=== PATIENT | female | born 1960 | race Caucasian/White ===

== ENCOUNTER → 2017-02-12 | Outpatient (CLI) | payer OTHER ==
[~2017-02-12] MED LIST: /TAMS4CA; BUPR15TA; CIPROFLOXACIN; CIPRPOW8; PERC5TAB8; VICO5TAB; WELL75TA
[2017-02-12 14:33] LABS: FREE T4 1.03 NG/DL (0.76-1.46)
== END ==
LOC: M SMT 08:40
PROVIDERS: ATTEND Family Medicine
DX: E03.8 Other specified hypothyroidism (principal)

== ENCOUNTER → 2017-07-05 | Outpatient (CLI) | payer OTHER ==
[2017-07-05 13:23] LABS: FREE T4 1.22 NG/DL (0.76-1.46)
== END ==
LOC: M SMT 09:07
PROVIDERS: ATTEND Family Medicine
DX: E03.8 Other specified hypothyroidism (principal)

== ENCOUNTER → 2018-03-15 | Outpatient (CLI) | payer OTHER ==
[2018-03-15 17:59] LABS: FREE T4 1.18 NG/DL (0.76-1.46); THYROID STIMULATING HORMONE 0.643 uIU/ML (0.358-3.740)
== END ==
LOC: M SMT 14:48
DX: E03.9 Hypothyroidism, unspecified (principal); F33.1 Major depressive disorder, recurrent, moderate; G47.00 Insomnia, unspecified
CPT/HCPCS: 84443

== ENCOUNTER → 2018-05-24 | Outpatient (REF) | payer OTHER ==
[2018-05-24 18:40] LABS: APPEARANCE, URINE TURBID (CLEAR); BACTERIA, URINE AUTO 3+ (NEGATIVE); BILIRUBIN, URINE AUTO NEGATIVE (NEGATIVE); BLOOD, URINE BLOOD 2+ (NEGATIVE); CALCIUM OXALATE CRYSTALS LARGE; COLOR, URINE YELLOW (YELLOW); GLUCOSE, URINE (UA) AUTO NEGATIVE (NEGATIVE); KETONE, URINE AUTO TRACE mg/dL (NEGATIVE); LEUKOCYTE ESTERASE, URINE AUTO 1+ (NEGATIVE); MUCUS, URINE MODERATE (NEGATIVE); NITRITE, URINE AUTO NEGATIVE (NEGATIVE); PROTEIN, URINE AUTO NEGATIVE (NEGATIVE); RBC, URINE AUTO 98 /HPF (0-3); SPECIFIC GRAVITY URINE AUTO 1.026 (1.002-1.035); SQUAMOUS EPITHELIAL CELL UR AU 7 /HPF (0-6); WBC, URINE AUTO TNTC /HPF (0-3)
== END ==
LOC: M LAB REF 17:09
DX: R30.0 Dysuria (principal)

== ENCOUNTER → 2018-10-23 | Outpatient (CLI) | payer OTHER ==
[2018-10-23 13:50] LABS: CHOLESTEROL RISK RATIO 3.257 (<5); FREE T4 1.32 NG/DL (0.76-1.46); THYROID STIMULATING HORMONE 1.54 uIU/ML (0.358-3.740)
== END ==
LOC: M SMT 09:55
PROVIDERS: ATTEND Family Medicine
DX: E03.8 Other specified hypothyroidism (principal); E78.00 Pure hypercholesterolemia, unspecified

== ENCOUNTER → 2018-12-19 | Outpatient (CLI) | payer OTHER ==
[~2018-12-19] MED LIST changes: -/TAMS4CA; +FLOM0.4C39
[2018-12-19 14:48] LABS: BASO % 0.4 % (0.0-1.0); EOS % 0.4 % (0.0-3.0); HEMATOCRIT 44.9 % (36.0-47.0); HEMOGLOBIN 14.3 g/dl (12.0-15.5); LYMPH # 1.7 10^3/uL (1.5-4.5); LYMPH % 32.9 % (24.0-44.0); MEAN CORPUSCULAR HEMOGLOBIN 30.2 pg (27.0-33.0); MEAN CORPUSCULAR HGB CONC 31.8 g/dl (32.0-36.5); MEAN CORPUSCULAR VOLUME 94.7 fl (80.0-96.0); MONO # 0.4 10^3/uL (0.0-0.8); MONO % 7.3 % (0.0-5.0); NEUTROPHILS # 3.1 10^3/uL (1.8-7.7); NEUTROPHILS % 58.6 % (36.0-66.0); PLATELET COUNT, AUTOMATED 197 10^3/uL (150-450); RED BLOOD COUNT 4.74 10^6/uL (4.00-5.40); WHITE BLOOD COUNT 5.2 10^3/uL (4.0-10.0)
[2018-12-19 15:09] LABS: ALBUMIN 3.7 GM/DL (3.2-5.2); ALT/SGPT 45 U/L (12-78); BILIRUBIN,TOTAL 0.2 MG/DL (0.2-1.0); BLOOD UREA NITROGEN 23 MG/DL (7-18); CALCIUM LEVEL 8.6 MG/DL (8.5-10.1); CARBON DIOXIDE LEVEL 29 MEQ/L (21-32); CHLORIDE LEVEL 108 MEQ/L (98-107); CREATININE FOR GFR 0.79 MG/DL (0.55-1.30); FERRITIN 30 NG/ML (8-252); FREE T4 1.36 NG/DL (0.76-1.46); GLOMERULAR FILTRATION RATE > 60.0 (>51); GLUCOSE, FASTING 88 MG/DL (70-100); IRON (FE) 74 UG/DL (50-170); MAGNESIUM LEVEL 2.4 MG/DL (1.8-2.4); PERCENT SATURATION 22.3 % (13.2-45.0); POTASSIUM SERUM 4.2 MEQ/L (3.5-5.1); RHEUMATOID FACTOR QUANT < 10.0 IU/ML (<15.0); SODIUM LEVEL 142 MEQ/L (136-145); THYROID STIMULATING HORMONE 0.587 uIU/ML (0.358-3.740); TOTAL 25(OH) VITAMIN D 30.9 NG/ML (30.0-100.0); TOTAL IRON BINDING CAPACITY 332 UG/DL (250-450); TOTAL PROTEIN 7.7 GM/DL (6.4-8.2); URIC ACID 3.7 MG/DL (2.6-6.0)
[2018-12-19 15:26] LABS: ERYTHROCYTE SEDIMENTATION RATE 25 mm/hr (0-30)
[2018-12-20 09:19] LABS: THYROID PEROXIDASE ANTIBODY 67.6 U/ML (<60.0)
[2018-12-23 00:06] LABS: ANTINUCLEAR ANTIBODIES DIRECT Negative (Negative); CYCLIC CITRULLINATED PEPTIDE 9 units (0-19); Lyme Disease IgG/IgM Antibodie <0.91 ISR (0.00-0.90); Lyme Disease IgM Ab Quantitati <0.80 index (0.00-0.79); TISSUE TRANSGLUTAMINASE IgA <2 U/mL (0-3); TISSUE TRANSGLUTAMINASE IgG <2 U/mL (0-5)
== END ==
LOC: M SMT 10:17
PROVIDERS: ATTEND Family Medicine
DX: R53.83 Other fatigue (principal); M25.50 Pain in unspecified joint; R00.2 Palpitations

== ENCOUNTER 2019-04-19 09:31 | Inpatient (IN) | payer OTHER ==
[~2019-04-19] VITALS: Ht 160 cm; Wt 61.4 kg
[2019-04-19] MEDS ORDERED: IBUP200C29 PO (09:38)
[2019-04-19] MEDS ORDERED: VENL75CA47 PO (09:38)
[2019-04-19] MEDS ORDERED: LEVO100T5 PO (09:38)
[2019-04-19] MEDS ORDERED: PROG1CAP8 (09:38)
[2019-04-19] MEDS ORDERED: VYVA40CA3 PO (09:38)
[2019-04-19] MEDS ORDERED: ESTR10TA PV (09:38)
[2019-04-19] MEDS ORDERED: VICO5TAB17 PO (09:54)
[2019-04-19] MEDS ORDERED: NS 1,000 ML IV ONE ×2 (10:30→13:30)
[2019-04-19] MEDS ORDERED: ONDANSETRON 4MG/2ML VIAL (J2405) IV ONE (10:30)
[2019-04-19 10:53] LABS: BASO % 0.2 % (0.0-1.0); EOS % 0.1 % (0.0-3.0); HEMATOCRIT 37.2 % (36.0-47.0); HEMOGLOBIN 12.2 g/dl (12.0-15.5); LYMPH # 0.3 10^3/uL (1.5-4.5); LYMPH % 2.3 % (24.0-44.0); MEAN CORPUSCULAR HEMOGLOBIN 30.8 pg (27.0-33.0); MEAN CORPUSCULAR HGB CONC 32.8 g/dl (32.0-36.5); MEAN CORPUSCULAR VOLUME 93.9 fl (80.0-96.0); MONO # 0.6 10^3/uL (0.0-0.8); MONO % 4.5 % (0.0-5.0); NEUTROPHILS # 11.5 10^3/uL (1.8-7.7); NEUTROPHILS % 92.3 % (36.0-66.0); PLATELET COUNT, AUTOMATED 142 10^3/uL (150-450); RED BLOOD COUNT 3.96 10^6/uL (4.00-5.40); WHITE BLOOD COUNT 12.4 10^3/uL (4.0-10.0)
[2019-04-19 11:15] LABS: ALBUMIN 2.7 GM/DL (3.2-5.2); BILIRUBIN,DIRECT 0.1 MG/DL (0.0-0.2); BILIRUBIN,TOTAL 0.3 MG/DL (0.2-1.0); CALCIUM LEVEL 8.3 MG/DL (8.5-10.1); CREATININE FOR GFR 2.07 MG/DL (0.55-1.30); GLOMERULAR FILTRATION RATE 26.3 (>51); POTASSIUM SERUM 3.8 MEQ/L (3.5-5.1); TOTAL PROTEIN 6.3 GM/DL (6.4-8.2)
[2019-04-19 11:21] LABS: INFLUENZA A AMPLIFICATION NEGATIVE (NEGATIVE); INFLUENZA B AMPLIFICATION NEGATIVE (NEGATIVE)
--- NOTE | 2019-04-19 11:27 | REP ---
Clinical: Pelvic pain . Technique: Transabdominal pelvic ultrasound followed by transvaginal examination for better evaluation of the endometrium and adnexa with color Doppler evaluation of the ovaries. Findings: Bladder is unremarkable and measures 8.1 x 2.9 x 5.3 cm . Normal retroverted uterus measures 6.8 x 3.2 x 3.8 cm . The endometrial complex measures 2.0 mm thickness. No discrete uterine or endometrial abnormalities are appreciated. Bilateral ovaries are normal in appearance and vascularity without evidence for torsion. Right ovary measures 1.9 x 1.1 x 1.2 cm ; R I = 0.53 . Left ovary measures 1.6 x 1.4 x 1.7 cm ; R I = 0.54 . No pelvic free fluid or adnexal mass lesion . Impression: 1. Normal pelvic ultrasound. Electronically Signed by Darrel Osborn MD 04/19/2019 11:18 A
[2019-04-19] MEDS ORDERED: PROG1CAP8 PO (13:14)
[2019-04-19] MEDS ORDERED: IBUP200C25 PO (13:14)
[2019-04-19] MEDS ORDERED: LevoFLOXacin IV 750 MG in APPROPRIATE DILUENT 1 EA IV ONE (13:30)
[2019-04-19] MEDS ORDERED: MORPHINE 2 MG/ML 1ML SYRINGE (J2270) IV ONE (13:45)
[2019-04-19] MEDS ORDERED: LR 1,000 ML IV ONE (14:15)
--- NOTE | 2019-04-19 14:56 | HPEPDOC ---
General Date of Admission Date of Service: Apr 19, 2019 Primary Care Physician: RUDDY LANCE DO Attending Physician: KALIA LOPEZ DO Chief Complaint The patient is a 59-year-old female admitted with a reason for visit of Left Stone With Possible Rt. History of Present Illness Patient is 59 years old female with past medical history of nephrolithiasis presenting hospital with left flank pain. Patient stated that she started feeling the left flank pain 3 days ago, severe a total of 10, intermittent associated with nausea and urinary frequency. The patient did have history of nephrolithiasis. Also patient developed fever of 103 with rigors. In the emergency room patient was found to have leukocytes count of 12.6, elevated lactic acid of 3.7. Abdominal CAT scan showed left ureteral stone of 0.6 cm. Urologist team consulted patient and decided to place a stent in the left ureter. Treatment with IV fluid and levofloxacin IV initiated. Home Medications Scheduled Estradiol (Estradiol) 10 Mcg Tablet, 10 MCG PV 2XWK, (Reported) Levothyroxine Sodium (Levothyroxine Sodium) 100 Mcg Tablet, 100 MCG PO DAILY, (Reported) Lisdexamfetamine Dimesylate (Vyvanse) 40 Mg Capsule, 40 MG PO DAILY, (Reported) Progesterone, Micronized (Progesterone) 100 Mg Capsule, 100 MG PO QPM, (Reported) Venlafaxine HCl (Venlafaxine HCl ER) 75 Mg Cap.er.24h, 225 MG PO DAILY, (Reported) Scheduled PRN Hydrocodone/Acetaminophen (Vicodin 5-300 mg Tablet) 1 Each Tablet, 1 TAB PO Q4H PRN for PAIN, (Reported) Ibuprofen (Ibuprofen) 200 Mg Capsule, 800 MG PO Q6H PRN for PAIN, (Reported) Allergies Coded Allergies: Cephalosporins (Verified Allergy, Unknown, hives, 04/19/19) Sulfa (Sulfonamide Antibiotics) (Verified Allergy, Unknown, hives, 04/19/19) Past Medical History Medical History Nephrolithiasis Surgical History Left knee surgery for a cruciate ligament tear, as well as endometrial ablation for dysfunctional uterine bleeding Family History Both parents have diabetes and hypertension Social History * Smoker: Denies Alcohol: Denies Drugs: denies Psychosocial History: No pertinent psych hx A-FIB/CHADSVASC A-FIB History Current/History of A-Fib/PAF?: No Current PO Anticoag Therapy: No Review of Systems Constitutional: Reports: Chills, Fever, Fatigue Eyes: Denies: Pain, Vision change ENT: Denies: Head Aches, Ear Pain Skin: Denies: Rash, Lesions Pulmonary: Denies: Dyspnea, Cough Cardiovascular: Denies: Chest Pain, Palpitations Gastrointestinal: Reports: Nausea Genitourinary: Reports: Dysuria, Frequency, Other Symptoms (left flank pain) Hematologic: Denies: Bruising, Bleeding Excessively Endocrine: Denies: Polydipsia, Polyphagia Musculoskeletal: Denies: Neck Pain, Back Pain Neurological: Denies: Weakness, Numbness Psych: Reports: Mood Normal Physical Examination General Exam: Positive: Alert, Cooperative, Moderate Distress Eye Exam: Positive: PERRLA, Conjunctiva & lids normal ENT Exam: Negative: Atraumatic, Mucous membr. moist/pink Neck Exam: Positive: Supple; Negative: JVD Heart Exam: Positive: Rate Normal, Tachycardic Abdomen Exam: Positive: BS Hypoactive, Tenderness (positive for left costophrenic tenderness) Extremity Exam: Negative: Clubbing, Cyanosis Skin Exam: Negative: Nl turgor and temperature Neuro Exam: Positive: Cranial Nerves 3-12 NL Psych Exam: Positive: Mental status NL Vital Signs Vital Signs Date Time Temp Pulse Resp B/P (MAP) Pulse Ox O2 Delivery O2 Flow Rate FiO2 04/19/19 13:56 16 04/19/19 13:35 98.8 80 153/71 (98) 98 04/19/19 09:31 Room Air Laboratory Data Labs 24H Laboratory Tests 2 04/19/19 09:47: Urine Color YELLOW, Urine Appearance CLEAR, Urine pH 5.0, Urine Specific [place] 1.013, Urine Protein 2+H, Urine Glucose (UA) NEGATIVE, Urine Ketones TRACEH, Urine Blood 2+H, Urine Nitrite NEGATIVE, Urine Bilirubin NEGATIVE, Urine Urobilinogen 0.2, Urine Leukocyte Esterase 1+H, Urine WBC (Auto) 49H, Urine RBC (Auto) 13H, Urine Hyaline Casts (Auto) 0, Urine Bacteria (Auto) 1+H, Urine Squamous Epithelial Cells 2, Urine Mucus (Auto) SMALL, Urine Sperm (Auto) 04/19/19 10:17: Immature Granulocyte % (Auto) 0.6, White Blood Count 12.4H, Red Blood Count 3.96L, Hemoglobin 12.2, Hematocrit 37.2, Mean Corpuscular Volume 93.9, Mean Corpuscular Hemoglobin 30.8, Mean Corpuscular Hemoglobin Concent 32.8, Red Cell Distribution Width 13.3, Platelet Count 142L, Neutrophils (%) (Auto) 92.3H, Lymphocytes (%) (Auto) 2.3L, Monocytes (%) (Auto) 4.5, Eosinophils (%) (Auto) 0.1, Basophils (%) (Auto) 0.2, Neutrophils # (Auto) 11.5H, Lymphocytes # (Auto) 0.3L, Monocytes # (Auto) 0.6, Eosinophils # (Auto) 0.0, Basophils # (Auto) 0.0, Nucleated Red Blood Cells % (auto) 0.0 04/19/19 10:30: Anion Gap 10, Glomerular Filtration Rate 26.3L, Calcium Level 8.3L, Aspartate Amino Transf (AST/SGOT) 36, Alanine Aminotransferase (ALT/SGPT) 46, Alkaline Phosphatase 104, Total Bilirubin 0.3, Direct Bilirubin 0.1, Total Protein 6.3L, Albumin 2.7L, Albumin/Globulin Ratio 0.75L, Lipase 51L, Influenza Type A (RT- PCR) NEGATIVE, Influenza Type B (RT-PCR) NEGATIVE, Respiratory Syncytial Virus (RT-PCR NEGATIVE 04/19/19 13:03: Lactic Acid Level 3.7*H CBC/BMP Laboratory Tests 04/19/19 10:17 Red Blood Count 3.96 L, Mean Corpuscular Volume 93.9, Mean Corpuscular Hemoglobin 30.8, Mean Corpuscular Hemoglobin Concent 32.8, Red Cell Distribution Width 13.3, Neutrophils (%) (Auto) 92.3 H, Lymphocytes (%) (Auto) 2.3 L, Monocytes (%) (Auto) 4.5, Eosinophils (%) (Auto) 0.1, Basophils (%) (Auto) 0.2, Neutrophils # (Auto) 11.5 H, Lymphocytes # (Auto) 0.3 L, Monocytes # (Auto) 0.6, Eosinophils # (Auto) 0.0, Basophils # (Auto) 0.0 04/19/19 10:30 Microbiology Microbiology 04/19/19 Blood Culture, Received Pending 04/19/19 Blood Culture, Received Pending 04/19/19 Urine Culture, Received Pending Assessment/Plan Patient is 59 years old female with past medical history of nephrolithiasis presenting hospital with left flank pain. Patient stated that she started feeling the left flank pain 3 days ago, severe a total of 10, intermittent associated with nausea and urinary frequency. The patient did have history of nephrolithiasis. Also patient developed fever of 103 with rigors. In the emergency room patient was found to have leukocytes count of 12.6, elevated lactic acid of 3.7. Abdominal CAT scan showed left ureteral stone of 0.6. Urologist team consulted patient and decided to place a stent in the left ureter. Treatment with IV fluid and levofloxacin IV initiated. Problems (1) Sepsis Problem Text: Secondary to acute pyelonephritis Patient has leukocytosis of 12.4, lactic acidosis of 3.7 Continue levofloxacin IV IV fluid Blood culture, urine culture (2) Pyelonephritis Status: Acute Problem Text: see above (3) Renal calculus, left Status: Acute Problem Text: Left ureteral stent placement today Continue IV fluid Urologist on board Plan / VTE VTE Prophylaxis Ordered?: Yes Plan Diet: Continue Current Anticipated Discharge: Home KALIA LOPEZ DO Apr 19, 2019 14:56
[2019-04-19] MEDS ORDERED: LevoFLOXacin IV 500 MG in APPROPRIATE DILUENT 1 EA IV SCH (15:15)
--- NOTE | 2019-04-19 17:15 | CR ---
DATE OF CONSULTATION: 04/19/2019 REFERRING PROVIDERS: Lexie Otero PA-C, and physician, Dr. Bryce Chou REASON FOR CONSULTATION: Obstructing left ureteral stone with possible urinary tract infection (UTI). HISTORY: Ms. 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 There have been no irritative voiding symptoms. She previously had a left-sided stone in 2007, requiring endoscopic intervention and stenting and ureteroscopic stone extraction. No prior to subsequent stone issues. She has had a temperature as high as 101.[address] scan shows on my review hydroureteronephrosis on the left down to the distal ureter, where there appear to be two adjacent stones, one approximately 5-6 mm and the other 3-4 mm. In the kidney there is a 1-2 mm stone on the left. There is no extravasation. No right-sided stones. Emergency room (ER) labs are significant for a white count of just over 12, lactate 3.7, creatinine 2. Urinalysis shows polyuria and microhematuria with 1+ bacteruria. ALLERGIES: SULFA and CEPHALOSPORINS, both of which cause hives. 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 She was formerly a pediatric nurse. MEDICATIONS: Levothyroxine, venlafaxine, Vyvanse, estradiol, Vicodin, Motrin, progesterone. REVIEW OF SYSTEMS: She has no past history of seizures, stroke, or lateralizing weakness. She does suffer from migraine headaches periodically and has been fairly photophobic during this episode. She has no known cardiac rhythm disturbances, murmurs, or failure. No history of myocardial infarction. No respiratory diseases or shortness of breath. Gastrointestinal (GI): She has been having nausea and vomiting. No other chronic GI problems. No hematochezia. URINARY HISTORY: Refer to history of present illness (HPI). GENITOURINARY SYSTEM: She has had previous uterine ablation. No other genitourinary issues. SURGERIES: 1. The ureteroscopic stone extraction. 2. Excision of Rust's neuroma. 3. Anterior cruciate ligament (ACL) repair. 4. Uterine ablation. For the remainder of her past medical, surgical, social, family history, review of systems, please refer to dictated history and physical on chart. PHYSICAL EXAMINATION: At the time of exam, temperature is 98.8, pulse 80, respirations 16, pulse oximetry 98, blood pressure 153/71. In general, she is awake, alert, and oriented. She appears ill. Her neck is supple. Chest clear. Cardiac: Regular rate and rhythm. Abdominal exam is soft. Tenderness in the left flank and left upper abdomen as well as the left lower quadrant. Bimanual pelvic exam is not done at this time. Extremity exam shows symmetrical pulses. Neurologic exam is nonfocal. No adenopathy is appreciated. IMPRESSION: Left distal ureteral stone with colic and possible urinary tract infection (UTI). The findings of elevation of lactate and pyuria are concerning for intercurrent sepsis. PLAN: Agree with involvement of the hospitalist service for admission for possible management of sepsis. I have contacted the operating room for cystoscopy and stent placement. There is no second team available at present to bring in for stent placement with an intercurrent acute abdomen undergoing surgery. The risks of cystoscopy and stent placement include infection, which may worsen postoperatively, bleeding, and the need for additional procedures, including possible nephrostomy if stent cannot be passed. Patient and her are agreeable to this plan, and their questions are answered.
[2019-04-19] MEDS ORDERED: PROPOFOL 200 MG/20 ML VIAL As Ordered ONE (17:38)
[2019-04-19] MEDS ORDERED: dexameTHASONE 4 MG/ML 1ML VIAL (J1100) As Ordered ONE (17:38)
[2019-04-19] MEDS ORDERED: MIDAZOLAM INJ 2 MG/2 ML VIAL (J2250) As Ordered ONE (17:38)
[2019-04-19] MEDS ORDERED: LIDOCAINE 2% INJ 100 MG/5 ML SDV (FOR ANES.) As Ordered ONE (17:38)
[2019-04-19] MEDS ORDERED: fentaNYL 100 MCG/2 ML INJECTION (J3010) As Ordered ONE (17:38)
[2019-04-19] MEDS ORDERED: ONDANSETRON 4MG/2ML VIAL (J2405) As Ordered ONE (17:38)
[2019-04-19] MEDS ORDERED: METOCLOPRAMIDE INJ 10MG/2ML VIAL (J2765) IV PRN (18:15)
[2019-04-19] MEDS ORDERED: LR 1,000 ML IV SCH (18:15)
[2019-04-19] MEDS ORDERED: KETOROLAC 30 MG/ML VIAL (J1885) IV PRN (18:15)
[2019-04-19] MEDS ORDERED: fentaNYL 100 MCG/2 ML INJECTION (J3010) IV PRN (18:15)
[2019-04-19] MEDS ORDERED: ONDANSETRON 4MG/2ML VIAL (J2405) IV PRN (18:15)
--- NOTE | 2019-04-19 18:21 | REP ---
Clinical: Left-sided obstructive uropathy. Technique: Intraoperative fluoroscopic imaging using portable C-arm technique. Findings: Two images demonstrate satisfactory left ureteral stent placement. Total fluoroscopic time 2 seconds. Impression: Status post left ureteral stent placement. Electronically Signed by Darrel Osborn MD 04/19/2019 06:13 P
[2019-04-19 18:45] VITALS: BP 128/75
[2019-04-19] MEDS: NS 1,000 ML IV SCH (18:48)
[2019-04-19 19:15] VITALS: BP 127/75
[2019-04-19] MEDS: HEPARIN SOD (PORCINE) 5000 UNITS/ML VIAL SC SCH (20:03)
[2019-04-19 20:15] VITALS: BP 124/75
[2019-04-19 21:27] VITALS: BP 120/73
[2019-04-19 22:54] VITALS: BP 120/73
[2019-04-20] MEDS: NS 1,000 ML IV SCH ×3 (00:12→23:55)
[2019-04-20] MEDS: NORCO, ANEXSIA 5/325MG TABLET (HYDROcodone/ACETAMINOPHEN) PO PRN ×5 (00:12→21:40)
[2019-04-20 00:17] VITALS: BP 120/76
[2019-04-20 04:00] VITALS: BP 108/66
[2019-04-20] MEDS: LEVOTHYROXINE 100MCG TABLET (0.1MG) PO SCH (05:56)
[2019-04-20 07:22] LABS: HEMATOCRIT 38.3 % (36.0-47.0); HEMOGLOBIN 12.4 g/dl (12.0-15.5); MEAN CORPUSCULAR HEMOGLOBIN 30.8 pg (27.0-33.0); MEAN CORPUSCULAR HGB CONC 32.4 g/dl (32.0-36.5); PLATELET COUNT, AUTOMATED 146 10^3/uL (150-450); RED BLOOD COUNT 4.03 10^6/uL (4.00-5.40); WHITE BLOOD COUNT 12.3 10^3/uL (4.0-10.0)
[2019-04-20 07:43] LABS: ALBUMIN 2.2 GM/DL (3.2-5.2); BILIRUBIN,TOTAL 0.3 MG/DL (0.2-1.0); CALCIUM LEVEL 8.5 MG/DL (8.5-10.1); CREATININE FOR GFR 1.35 MG/DL (0.55-1.30); MAGNESIUM LEVEL 2.3 MG/DL (1.8-2.4); TOTAL PROTEIN 6.7 GM/DL (6.4-8.2)
[2019-04-20] MEDS: HEPARIN SOD (PORCINE) 5000 UNITS/ML VIAL SC SCH ×2 (09:01→21:23)
[2019-04-20] MEDS: VENLAFAXINE **XR** 75MG CAPSULE PO SCH (09:02)
[2019-04-20] MEDS: oxyBUTYnin *DITROPAN XL* 5 MG TABCR PO SCH (09:02)
--- NOTE | 2019-04-20 09:33 | IPNPDOC ---
Subjective Review oF Systems Chief Complaint The patient is a 59-year-old female admitted with a reason for visit of Left Stone With Possible Rt. General: Reports: Chills, Malaise Constitutional: Reports: Chills, Malaise Eyes: Denies: Pain, Vision change, Conjunctivae inflammation, Eyelid inflammation, Redness, Other ENT: Denies: Head Aches, Ear Pain, Dysphagia, Sinus Congestion, Post Nasal Drip, Sore Throat, Epistaxis, Other Symptoms Skin: Denies: Rash, Lesions, Jaundice, Bruising, Itching, Dry, Breakdown, Nail Changes, Other Pulmonary: Denies: Dyspnea, Cough, Pleuritic Chest Pain, Other Symptoms Cardiovascular: Denies Chest Pain, Denies Palpitations, Denies Orthopnea, Denies Paroxysmal Noc. Dyspnea, Denies Edema, Denies Lt Headedness, Denies Other Symptoms Gastrointestinal: Denies: Nausea, Vomiting, Abdominal Pain, Diarrhea, Constipation, Melena, Hematochezia, Other Symptoms Hematologic: Denies: Bruising, Bleeding Excessively, Petecchia, Purpura, Enlarged Lymph Nodes, Other Hematologic Musculoskeletal: Denies: Neck Pain, Back Pain, Shoulder Pain, Arm Pain, Hand Pain, Leg Pain, Foot Pain, Joint Pain, Muscle Pain, Spasms, Other Symptoms Neurological: Denies: Weakness, Numbness, Incoordination, Change in Speech, Confusion, Seizures, Other Symptoms Psych: Reports: Mood Normal Objective Physical Examination General Exam: Alert, Cooperative, No Acute Distress Eye Exam: PERRLA ENT EXAM: Atraumatic Neck Exam: Supple Chest Exam: Normal air movement Heart Exam: Positive: Rate Normal, Tachycardic Vital Signs/I&O Vital Signs Date Time Temp Pulse Resp B/P (MAP) Pulse Ox O2 Delivery O2 Flow Rate FiO2 04/20/19 07:59 16 04/20/19 04:00 98.5 74 108/66 (80) 96 04/19/19 15:53 Room Air I&O- Last 24 Hours up to 6 AM 04/20/19 06:00 Intake Total 2630 ml Output Total 1875 ml Balance 755 ml Laboratory Data Labs 24H Laboratory Tests 2 04/19/19 09:47: Urine Color YELLOW, Urine Appearance CLEAR, Urine pH 5.0, Urine Specific [place] 1.013, Urine Protein 2+H, Urine Glucose (UA) NEGATIVE, Urine Ketones TRACEH, Urine Blood 2+H, Urine Nitrite NEGATIVE, Urine Bilirubin NEGATIVE, Urine Urobilinogen 0.2, Urine Leukocyte Esterase 1+H, Urine WBC (Auto) 49H, Urine RBC (Auto) 13H, Urine Hyaline Casts (Auto) 0, Urine Bacteria (Auto) 1+H, Urine Squamous Epithelial Cells 2, Urine Mucus (Auto) SMALL, Urine Sperm (Auto) 04/19/19 10:17: Immature Granulocyte % (Auto) 0.6, White Blood Count 12.4H, Red Blood Count 3.96L, Hemoglobin 12.2, Hematocrit 37.2, Mean Corpuscular Volume 93.9, Mean Corpuscular Hemoglobin 30.8, Mean Corpuscular Hemoglobin Concent 32.8, Red Cell Distribution Width 13.3, Platelet Count 142L, Neutrophils (%) (Auto) 92.3H, Lymphocytes (%) (Auto) 2.3L, Monocytes (%) (Auto) 4.5, Eosinophils (%) (Auto) 0.1, Basophils (%) (Auto) 0.2, Neutrophils # (Auto) 11.5H, Lymphocytes # (Auto) 0.3L, Monocytes # (Auto) 0.6, Eosinophils # (Auto) 0.0, Basophils # (Auto) 0.0, Nucleated Red Blood Cells % (auto) 0.0 04/19/19 10:30: Anion Gap 10, Glomerular Filtration Rate 26.3L, Calcium Level 8.3L, Aspartate Amino Transf (AST/SGOT) 36, Alanine Aminotransferase (ALT/SGPT) 46, Alkaline Phosphatase 104, Total Bilirubin 0.3, Direct Bilirubin 0.1, Total Protein 6.3L, Albumin 2.7L, Albumin/Globulin Ratio 0.75L, Lipase 51L, Influenza Type A (RT- PCR) NEGATIVE, Influenza Type B (RT-PCR) NEGATIVE, Respiratory Syncytial Virus (RT-PCR NEGATIVE 04/19/19 13:03: Lactic Acid Level 3.7*H 04/19/19 18:47: Urine Color YELLOW, Urine Appearance CLOUDYH, Urine pH 6.0, Urine Specific [place] 1.006, Urine Protein 2+H, Urine Glucose (UA) NEGATIVE, Urine Ketones TRACEH, Urine Blood 2+H, Urine Nitrite NEGATIVE, Urine Bilirubin NEGATIVE, Urine Urobilinogen 0.2, Urine Leukocyte Esterase 3+H, Urine WBC (Auto) TNTCH, Urine RBC (Auto) TNTCH, Urine Hyaline Casts (Auto) 0, Urine Bacteria (Auto) 1+H, Urine Squamous Epithelial Cells 0, Urine Sperm (Auto) 04/19/19 20:25: Lactic Acid Followup at 4 Hours 1.1 04/20/19 06:45: Nucleated Red Blood Cells % (auto) 0.0, Anion Gap 7L, Glomerular Filtration Rate 43.0L, Blood Urea Nitrogen 28H, Creatinine 1.35H, Sodium Level 137, Potassium Level 4.0, Chloride Level 109H, Carbon Dioxide Level 21, Calcium Level 8.5, Aspa rtate Amino Transf (AST/SGOT) 21, Alanine Aminotransferase (ALT/SGPT) 30, Alkaline Phosphatase 102, Total Bilirubin 0.3, Total Protein 6.7, Albumin 2.2L, Magnesium Level 2.3, Albumin/Globulin Ratio 0.49L CBC/BMP Laboratory Tests 04/19/19 10:17 Red Blood Count 3.96 L, Mean Corpuscular Volume 93.9, Mean Corpuscular Hemoglobin 30.8, Mean Corpuscular Hemoglobin Concent 32.8, Red Cell Distribution Width 13.3, Neutrophils (%) (Auto) 92.3 H, Lymphocytes (%) (Auto) 2.3 L, Monocytes (%) (Auto) 4.5, Eosinophils (%) (Auto) 0.1, Basophils (%) (Auto) 0.2, Neutrophils # (Auto) 11.5 H, Lymphocytes # (Auto) 0.3 L, Monocytes # (Auto) 0.6, Eosinophils # (Auto) 0.0, Basophils # (Auto) 0.0 04/19/19 10:30 04/20/19 06:45 Red Blood Count 4.03, Mean Corpuscular Volume 95.0, Mean Corpuscular Hemoglobin 30.8, Mean Corpuscular Hemoglobin Concent 32.4, Red Cell Distribution Width 13.9, Calcium Level 8.5, Aspartate Amino Transf (AST/SGOT) 21, Alanine Aminotransferase (ALT/SGPT) 30, Alkaline Phosphatase 102, Total Bilirubin 0.3, Total Protein 6.7, Albumin 2.2 L Microbiology Microbiology 04/19/19 Blood Culture - Preliminary, Resulted 04/19/19 Blood Culture - Preliminary, Resulted 04/19/19 Urine Culture, Received Pending 04/19/19 Urine Culture - Final, Complete Assessment/Plan Date Seen The patient was seen on 04/20/19. Patient Summary Blood cultures - 2 of 2 + for GNR Urine culture - 'contaminated' A: L ureteral stone with GNR sepsis - improving post stent with current IV abx regimen Dr. Delgado is concerned with poss meningitis from gnr sepsis and wonders about LP. I do not think this has occurred, and do not thing there is an indication for LP at this time. Problems (1) Sepsis (2) Pyelonephritis Status: Acute (3) Renal calculus, left Status: Acute Plan/VTE VTE Prophylaxis Ordered?: Yes Plan P: Cont IV abx pending sensitivities, and continue on appropriate po regimen til stone free. F/U in office in 7-10 days. I will alert Dr. Ibanez of pt's presence in am. Diet: Continue Current Activity: Encourage Ambulation Anticipated Discharge: Home ELISSA ORTIZ MD Apr 20, 2019 09:33
[2019-04-20 10:45] VITALS: BP 145/76
--- NOTE | 2019-04-20 11:59 | RO ---
DATE OF PROCEDURE: 04/19/2019 PREPROCEDURE DIAGNOSIS: Left distal ureteral stent with infection. POSTPROCEDURE DIAGNOSIS: Left distal ureteral stent with infection. PROCEDURE: Cystoscopy with stent placement. SURGEON: Dr. Arthur Davenport. PASSENGER SERVICE SUPERVISOR: ANESTHESIA: General. 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 She finally came to the emergency room and was found to have a 6 mm left distal ureteral stone with another stone just above it with hydroureteronephrosis. She had been having temperature elevations as high as 101.6. White count 12.4, Lactate 3.7. Creatinine 2.0. DESCRIPTION OF PROCEDURE: After obtaining informed consent for the patient, she was taken to the operating room where after sufficient anesthetic, she was prepped and draped in the usual manner. The 22-Barbadian diagnostic cystoscope was advanced to the bladder and the bladder inspected with the 30 and 70-degree lenses. No stones or abnormalities were seen. A wire was negotiated on the left side past the stone to the kidney under fluoroscopic control. A 6-Barbadian universal stent was advanced over the wire and positioned fluoroscopically in the kidney and bladder. The string was attached, the wire removed and the patient transferred to recovery room in satisfactory condition after draining the bladder. FINDINGS AT SURGERY: Immediate purulent hydronephrotic gush upon passage of the wire. DISPOSITION: The patient is to be admitted on the hospitalist service. The plan will be for delayed uteroscopic stone extraction after clinically stable in 2-4 weeks' time. Cultures are pending including urine and blood cultures. COMPLICATIONS: There were no intraoperative complications. ESTIMATED BLOOD LOSS: Minimal.
[2019-04-20] MEDS: LevoFLOXacin IV 750 MG in APPROPRIATE DILUENT 1 EA IV SCH (14:17)
[2019-04-20 14:45] VITALS: BP 137/89
[2019-04-20] MEDS: MORPHINE 4 MG/ML 1ML VIAL/SYRINGE (J2270) IV PRN ×2 (15:51→19:06)
--- NOTE | 2019-04-20 16:40 | IPNPDOC ---
Text Note Date of Service The patient was seen on 04/20/19. NOTE Subjective: In the morning patient does not have any complaints, she stated that left flank pain subsided. Around 3 PM patient started feeling severe left flank pain similar to what she had before. Objective: In moderate distress HEENT: PERRLA, EOMI CV: S1-S2 Chest: CTA Abdomen: Left costophrenic tenderness, no abdominal tenderness, no rebound Extremity: No cyanosis, no edema Neuro: Nonfocal, cranial nerves from 2-12 intact Patient is 59 years old female with past medical history of nephrolithiasis presenting hospital with left flank pain. Patient stated that she started feeling the left flank pain 3 days ago, severe a total of 10, intermittent associated with nausea and urinary frequency. The patient did have history of nephrolithiasis. Also patient developed fever of 103 with rigors. In the emergency room patient was found to have leukocytes count of 12.6, elevated lactic acid of 3.7. Abdominal CT scan shows hydroureteronephrosis on the left down to the distal ureter, where there appear to be two adjacent stones, one approximately 5-6 mm and the other 3-4 mm. In the kidney there is a 1-2 mm stone on the left. Urologist team consulted patient and decided to place a stent in the left ureter. Treatment with IV fluid and levofloxacin IV initiated. On 04/19/19 stent was placed. Renal colic Renal ultrasound STAT There is possibility for stent obstruction If worsening hydronephrosis I will discuss with urologist a new stent placement Sepsis Problem Text: Secondary to acute pyelonephritis Patient has leukocytosis of 12.4, lactic acidosis of 3.7 on admission Continue levofloxacin IV IV fluid Blood culture positive for gram-negative rods Urine culture pending Pyelonephritis Status: Acute Problem Text: Stent was placed yesterday. Continue IV Levaquin Renal calculus, left Status: Acute Problem Text: Continue IV fluid Urologist on board SUSAN Baseline creatinine 0.9 Improved after stent placement Continue hydration VS,Fishbone, I+O VS, Fishbone, I+O Laboratory Tests 04/20/19 06:45 Red Blood Count 4.03, Mean Corpuscular Volume 95.0, Mean Corpuscular Hemoglobin 30.8, Mean Corpuscular Hemoglobin Concent 32.4, Red Cell Distribution Width 13.9, Calcium Level 8.5, Aspartate Amino Transf (AST/SGOT) 21, Alanine Aminotransferase (ALT/SGPT) 30, Alkaline Phosphatase 102, Total Bilirubin 0.3, Total Protein 6.7, Albumin 2.2 L Vital Signs Date Time Temp Pulse Resp B/P (MAP) Pulse Ox O2 Delivery O2 Flow Rate FiO2 04/20/19 15:51 16 04/20/19 14:45 99.7 78 137/89 (105) 94 04/19/19 15:53 Room Air I&O- Last 24 Hours up to 6 AM 04/20/19 06:00 Intake Total 2630 ml Output Total 1875 ml Balance 755 ml KALIA LOPEZ DO Apr 20, 2019 16:40
[2019-04-20 22:00] VITALS: BP 130/73
[2019-04-21] MEDS: MORPHINE 4 MG/ML 1ML VIAL/SYRINGE (J2270) IV PRN (01:03)
[2019-04-21] MEDS: NS 1,000 ML IV SCH (05:35)
[2019-04-21] MEDS: NORCO, ANEXSIA 5/325MG TABLET (HYDROcodone/ACETAMINOPHEN) PO PRN (05:59)
[2019-04-21] MEDS: LEVOTHYROXINE 100MCG TABLET (0.1MG) PO SCH (05:59)
[2019-04-21 06:00] VITALS: BP 144/82
[2019-04-21 07:44] LABS: HEMOGLOBIN 11.3 g/dl (12.0-15.5); MEAN CORPUSCULAR HEMOGLOBIN 30.1 pg (27.0-33.0); MEAN CORPUSCULAR HGB CONC 33.2 g/dl (32.0-36.5); MEAN CORPUSCULAR VOLUME 90.4 fl (80.0-96.0); PLATELET COUNT, AUTOMATED 157 10^3/uL (150-450); RED BLOOD COUNT 3.76 10^6/uL (4.00-5.40); WHITE BLOOD COUNT 10.8 10^3/uL (4.0-10.0)
[2019-04-21 08:15] LABS: BLOOD UREA NITROGEN 18 MG/DL (7-18); CALCIUM LEVEL 7.9 MG/DL (8.5-10.1); CARBON DIOXIDE LEVEL 22 MEQ/L (21-32); CHLORIDE LEVEL 109 MEQ/L (98-107); CREATININE FOR GFR 0.98 MG/DL (0.55-1.30); GLOMERULAR FILTRATION RATE > 60.0 (>51); GLUCOSE, FASTING 93 MG/DL (70-100); POTASSIUM SERUM 3.4 MEQ/L (3.5-5.1); SODIUM LEVEL 137 MEQ/L (136-145)
[2019-04-21] MEDS ORDERED: POTASSIUM CHLORIDE 10 MEQ SR TABLET PO ONE (08:30)
[2019-04-21] MEDS ORDERED: MIRALAX *UNIT DOSE* 17GM PACKET PO PRN (09:15)
[2019-04-21] MEDS: oxyBUTYnin *DITROPAN XL* 5 MG TABCR PO SCH (09:24)
[2019-04-21] MEDS: VENLAFAXINE **XR** 75MG CAPSULE PO SCH (09:25)
[2019-04-21] MEDS: HEPARIN SOD (PORCINE) 5000 UNITS/ML VIAL SC SCH (09:25)
--- NOTE | 2019-04-21 10:42 | IPNPDOC ---
Date Seen The patient was seen on 04/21/19. Progress Note SUBJECTIVE: Patient without complaints this morning. Mild stent pain last night, better after IV fluids. Afebrile. Urine c/s e. coli. Blood c/s gram - rods. OBJECTIVE PHYSICAL EXAMINATION: VITAL SIGNS: Please see below. GENERAL: awake and alert ABDOMINAL: soft non tender LABORATORY DATA, IMAGING STUDIES, MICROBIOLOGY: Please see below. ASSESSMENT AND PLAN: Left ureteral calculus with urosepsis. Patient urologically stable. Recommend changing to po antibiotics. Patient will need ureteroscopy in 2-3 weeks after UTI has resolved and inflammation of the ureter has resolved for stone removal. VS, I&O, 24H, Fishbone Vital Signs/I&O Vital Signs Date Time Temp Pulse Resp B/P (MAP) Pulse Ox O2 Delivery O2 Flow Rate FiO2 04/21/19 06:29 18 04/21/19 06:00 98.3 88 144/82 (102) 96 04/19/19 15:53 Room Air I&O- Last 24 Hours up to 6 AM 04/21/19 06:00 Intake Total 3507 ml Output Total 1950 ml Balance 1557 ml Laboratory Data 24H LABS Laboratory Tests 2 04/21/19 07:28: Nucleated Red Blood Cells % (auto) 0.0, Anion Gap 6L, Glomerular Filtration Rate > 60.0, Blood Urea Nitrogen 18, Creatinine 0.98, Sodium Level 137, Potassium Level 3.4L, Chloride Level 109H, Carbon Dioxide Level 22, Calcium Level 7.9L CBC/BMP Laboratory Tests 04/21/19 07:28 Red Blood Count 3.76 L, Mean Corpuscular Volume 90.4, Mean Corpuscular Hemoglobin 30.1, Mean Corpuscular Hemoglobin Concent 33.2, Red Cell Distribution Width 14.4, Calcium Level 7.9 L Microbiology Microbiology 04/20/19 Blood Culture - Preliminary, Resulted No growth after 24 hours . All specim... 04/19/19 Blood Culture - Preliminary, Resulted 04/19/19 Blood Culture - Preliminary, Resulted 04/19/19 Urine Culture - Final, Complete Escherichia Coli 04/19/19 Urine Culture - Final, Complete Richard Reyna MD Apr 21, 2019 10:42
[2019-04-21 11:47] LABS: BASO % 0.2 % (0.0-1.0); EOS % 0.1 % (0.0-3.0); LYMPH # 0.8 10^3/uL (1.5-5.0); MONO # 1.3 10^3/uL (0.0-0.8); MONO % 11.8 % (0.0-5.0); NEUTROPHILS # 8.6 10^3/uL (1.5-8.5)
--- NOTE | 2019-04-21 13:24 | DS.PDOC ---
Discharge Summary General Date of Admission Apr 20, 2019 at 09:24 Date of Discharge 04/21/19 Primary Care Physician: RUDDY LANCE DO Attending Physician: KALIA LOPEZ DO Discharge Summary PROCEDURES PERFORMED DURING STAY: Left ureter stent placement, cystoscopy ADMITTING DIAGNOSES: Urosepsis Pyelonephritis Renal calculus, left SUSAN DISCHARGE DIAGNOSES: Urosepsis Pyelonephritis Renal calculus, left SUSAN COMPLICATIONS/CHIEF COMPLAINT: Left Stone With Possible Rt. HISTORY OF PRESENT ILLNESS: Patient is 59 years old female with past medical history of nephrolithiasis presenting to the hospital with left flank pain. Patient stated that she started feeling the left flank pain 3 days ago, severe 10 out of 10, intermittent associated with nausea and urinary frequency. The patient did have history of nephrolithiasis. Also patient developed fever of 103 with rigors. In the emergency room patient was found to have leukocytes count of 12.6, elevated lactic acid of 3.7. Abdominal CT scan shows hydroureteronephrosis of the left down to the distal ureter, where there appear to be two adjacent stones, one approximately 5-6 mm and the other 3-4 mm. In the kidney there is a 1-2 mm stone on the left. Creatinine was elevated to 1.35. Urologist team consulted patient and decided to place a stent in the left ureter. Treatment with IV fluid and levofloxacin IV initiated. On 04/19/19 stent was placed. After stent placement kidney function improved, on 04/21/19 creatinine 0.9. HOSPITAL COURSE: During hospital stay patient had intermittent left flank pain, kidney ultrasound was done and showed moderate hydronephrosis on the left side. Patient received treatment with IV levofloxacin. Initially urine culture was positive for Escherichia coli, blood culture was positive for Escherichia coli as well. Urine culture Escherichia coli is pansensitive to antibiotics including levofloxacin. Repeated blood culture on 04/20/19 was negative for past 24 hours. Patient received pain management and IV fluid with positive effect. Intermittent flank pain subsided. On 04/21/[address] Reyna recommended changing therapy to PO antibiotics and ureteroscopy in 2-3 weeks after UTI will be resolved and inflammation of the ureter will be resolved for stone removal. Per family request patient will be transferred to [facility] MEDICATIONS: Please see below. ALLERGIES: Please see below. PHYSICAL EXAMINATION ON DISCHARGE: VITAL SIGNS: Please see below. GENERAL: NAD HEENT: PERRLA, EOMI NECK: No JVD, supple CARDIOVASCULAR EXAMINATION: S1-S2 RESPIRATORY EXAMINATION: CTA ABDOMINAL EXAMINATION: Nontender, nondistended, mild costophrenic tenderness on the left side EXTREMITIES: No edema, no swelling NEUROLOGICAL EXAMINATION: Nonfocal LABORATORY DATA: Please see below. IMAGING: Clinical: Left flank pain. Technique: Axial noncontrast images from the lung bases to the pubic symphysis with coronal and sagittal re-formations. Findings: Edematous enlargement to the left kidney with mild perinephric stranding and hydroureteronephrosis is secondary to a 6.5 mm obstructing calculus in the distal left ureter (image 128). Smaller nonobstructing calculi in the left renal pelvis and the more proximal left ureter noted. The right kidney/ureter and bladder appear normal. Liver, spleen, pancreas, gallbladder, and bilateral adrenal glands are normal for noncontrast evaluation. Enteric system is without obstruction or acute inflammatory process. Pelvis demonstrates normal bladder and age-appropriate uterus/adnexa. No ascites. No free air. No adenopathy. Musculoskeletal structures demonstrate age-related changes. Lung bases are clear. Impression: Acute left-sided obstructive uropathy with a 6.5 mm calculus in the distal left ureter and smaller nonobstructing left intrarenal/ureteral calculi EXAMINATION REQUESTED: Retrograde Pyelogram REASON FOR PATIENT VISIT: LEFT STONE WITH POSSIBLE RT REASON FOR EXAM/COMMENT: LEFT STENT PLACEMENT Clinical: Left-sided obstructive uropathy. Technique: Intraoperative fluoroscopic imaging using portable C-arm technique. Findings: Two images demonstrate satisfactory left ureteral stent placement. Total fluoroscopic time 2 seconds. Impression: Status post left ureteral stent placement. PROGNOSIS: Favorable ACTIVITY: As tolerated DIET: Regular DISCHARGE PLAN: Follow-up with urologist after discharge from [facility] DISPOSITION: Transfer to [facility] TO FOLLOWUP ON ON OUTPATIENT: 1. Drink plenty of fluid at least 2L DISCHARGE CONDITION: Stable TIME SPENT ON DISCHARGE: Greater than 20 minutes. Vital Signs/I&Os Vital Signs Date Time Temp Pulse Resp B/P (MAP) Pulse Ox O2 Delivery O2 Flow Rate FiO2 04/21/19 06:29 18 04/21/19 06:00 98.3 88 144/82 (102) 96 04/19/19 15:53 Room Air I&O- Last 24 Hours up to 6 AM 04/21/19 06:00 Intake Total 3507 ml Output Total 1950 ml Balance 1557 ml Laboratory Data Labs 24H Laboratory Tests 2 04/21/19 07:28: Immature Granulocyte % (Auto) 0.9, White Blood Count 10.8H, Red Blood Count 3.76L, Hemoglobin 11.3L, Hematocrit 34.0L, Mean Corpuscular Volume 90.4, Mean Corpuscular Hemoglobin 30.1, Mean Corpuscular Hemoglobin Concent 33.2, Red Cell Distribution Width 14.4, Platelet Count 157, Neutrophils (%) (Auto) 80.0H, Lymphocytes (%) (Auto) 7.0L, Monocytes (%) (Auto) 11.8H, Eosinophils (%) (Auto) 0.1, Basophils (%) (Auto) 0.2, Neutrophils # (Auto) 8.6H, Lymphocytes # (Auto) 0.8L, Monocytes # (Auto) 1.3H, Eosinophils # (Auto) 0.0, Basophils # (Auto) 0.0, Nucleated Red Blood Cells % (auto) 0.0, Anion Gap 6L, Glomerular Filtration Rate > 60.0, Blood Urea Nitrogen 18, Creatinine 0.98, Sodium Level 137, Potassium Level 3.4L, Chloride Level 109H, Carbon Dioxide Level 22, Calcium Level 7.9L CBC/BMP Laboratory Tests 04/21/19 07:28 Red Blood Count 3.76 L, Mean Corpuscular Volume 90.4, Mean Corpuscular Hemoglobin 30.1, Mean Corpuscular Hemoglobin Concent 33.2, Red Cell Distribution Width 14.4, Neutrophils (%) (Auto) 80.0 H, Lymphocytes (%) (Auto) 7.0 L, Monocytes (%) (Auto) 11.8 H, Eosinophils (%) (Auto) 0.1, Basophils (%) (Auto) 0.2, Neutrophils # (Auto) 8.6 H, Lymphocytes # (Auto) 0.8 L, Monocytes # (Auto) 1.3 H, Eosinophils # (Auto) 0.0, Basophils # (Auto) 0.0, Calcium Level 7.9 L Microbiology Microbiology 04/20/19 Blood Culture - Preliminary, Resulted No growth after 24 hours . All specim... 04/19/19 Blood Culture - Preliminary, Resulted 04/19/19 Blood Culture - Preliminary, Resulted 04/19/19 Urine Culture - Final, Complete Escherichia Coli 04/19/19 Urine Culture - Final, Complete Discharge Medications Scheduled Estradiol (Estradiol) 10 Mcg Tablet, 10 MCG PV 2XWK, (Reported) Levothyroxine Sodium (Levothyroxine Sodium) 100 Mcg Tablet, 100 MCG PO DAILY, (R eported) Lisdexamfetamine Dimesylate (Vyvanse) 40 Mg Capsule, 40 MG PO DAILY, (Reported) Progesterone, Micronized (Progesterone) 100 Mg Capsule, 100 MG PO QPM, (Reported) Venlafaxine HCl (Venlafaxine HCl ER) 75 Mg Cap.er.24h, 225 MG PO DAILY, (Reported) Scheduled PRN Hydrocodone/Acetaminophen (Vicodin 5-300 mg Tablet) 1 Each Tablet, 1 TAB PO Q4H PRN for PAIN, (Reported) Ibuprofen (Ibuprofen) 200 Mg Capsule, 800 MG PO Q6H PRN for PAIN, (Reported) Allergies Coded Allergies: Cephalosporins (Verified Allergy, Unknown, hives, 04/19/19) Sulfa (Sulfonamide Antibiotics) (Verified Allergy, Unknown, hives, 04/19/19) KALIA LOPEZ DO Apr 21, 2019 13:24
[2019-04-21] MEDS: LevoFLOXacin IV 750 MG in APPROPRIATE DILUENT 1 EA IV SCH (13:32)
[2019-04-21] MEDS ORDERED: LevoFLOXacin IV 750 MG in APPROPRIATE DILUENT 1 EA IV SCH (14:00)
--- NOTE | 2019-04-22 14:56 | REP ---
Clinical: Left flank pain. Technique: Axial noncontrast images from the lung bases to the pubic symphysis with coronal and sagittal re-formations. Findings: Edematous enlargement to the left kidney with mild perinephric stranding and hydroureteronephrosis is secondary to a 6.5 mm obstructing calculus in the distal left ureter (image 128). Smaller nonobstructing calculi in the left renal pelvis and the more proximal left ureter noted. The right kidney/ureter and bladder appear normal. Liver, spleen, pancreas, gallbladder, and bilateral adrenal glands are normal for noncontrast evaluation. Enteric system is without obstruction or acute inflammatory process. Pelvis demonstrates normal bladder and age-appropriate uterus/adnexa. No ascites. No free air. No adenopathy. Musculoskeletal structures demonstrate age-related changes. Lung bases are clear. Impression: Acute left-sided obstructive uropathy with a 6.5 mm calculus in the distal left ureter and smaller nonobstructing left intrarenal/ureteral calculi Electronically Signed by Darrel Osborn MD 04/19/2019 11:51 A
--- NOTE | 2019-04-22 15:12 | REP ---
Clinical: Pyelonephritis. Technique: Real time kelley scale ultrasound examination using curved array transducer. Findings: The right kidney is normal in contour, size, echogenicity, and reniform shape without hydronephrosis, nephrolithiasis, cystic or renal mass lesion. Kidney measures 11.3 x 5.8 x 4.3 cm. The left kidney is normal in contour, size, echogenicity, and reniform shape with a ureteral stent identified in the renal pelvis and associated mild residual hydronephrosis. No obvious nephrolithiasis, cystic or renal mass lesion appreciated. Kidney measures 11.7 x 5.5 x 5.6 cm. Limited evaluation of the bladder is unremarkable with right ureteral jet identified. Left ureteral jet is not visualized during examination. Impression: 1. Left kidney with ureteral stent identified in the renal pelvis and mild residual hydronephrosis. 2. Normal right kidney. Electronically Signed by Darrel Osborn MD 04/20/2019 04:58 P
== END 2019-04-21 15:35 | disposition short-term general hospital (02) | DRG 720 ==
LOC: M ED 09:31 → M SDC 14:26 → M MS5PR 14:33 → M SDC 14:33 → M MS5PR 18:30 → M SDC 04-20 09:21 → M MS5PR 04-20 09:21 → UNDOADMIN 04-20 09:24 → M MS5PR 04-20 09:24 → UNDODISIN 04-21 15:35
PROVIDERS: ADMIT Internal Medicine; ATTEND Internal Medicine
PROC: 0T9740Z Drainage of Left Ureter with Drainage Device, Percutaneous Endoscopic Approach (ICD-10-PCS; principal; 2019-04-19 15:22)
DX: A41.51 Sepsis due to Escherichia coli [E. coli] (principal); N17.9 Acute kidney failure, unspecified; N10 Acute pyelonephritis; N13.2 Hydronephrosis with renal and ureteral calculous obstruction; Z79.899 Other long term (current) drug therapy; Z88.2 Allergy status to sulfonamides; Z88.8 Allergy status to other drugs, medicaments and biological substances

== ENCOUNTER → 2019-08-19 | Outpatient (REF) | payer OTHER ==
[~2019-08-19] MED LIST changes: +ESTR10TA PV; +IBUP200C25 PO; +IBUP200C29 PO; +LEVO100T5 PO; +PROG1CAP8; +PROG1CAP8 PO; +VENL75CA47 PO; +VICO5TAB17 PO; +VYVA40CA3 PO
[2019-08-19 13:37] LABS: EOS % 0.2 % (0.0-3.0); HEMATOCRIT 41.5 % (36.0-47.0); HEMOGLOBIN 13.3 g/dl (12.0-15.5); LYMPH # 1.7 10^3/uL (1.5-5.0); MEAN CORPUSCULAR HEMOGLOBIN 30.2 pg (27.0-33.0); MEAN CORPUSCULAR VOLUME 94.3 fl (80.0-96.0); MONO # 0.4 10^3/uL (0.0-0.8); MONO % 7.2 % (0.0-5.0); NEUTROPHILS # 2.9 10^3/uL (1.5-8.5); NEUTROPHILS % 58.4 % (36.0-66.0); PLATELET COUNT, AUTOMATED 210 10^3/uL (150-450)
[2019-08-19 13:50] LABS: ALT/SGPT 27 U/L (12-78); BILIRUBIN,TOTAL 0.2 MG/DL (0.2-1.0); BLOOD UREA NITROGEN 17 MG/DL (7-18); CALCIUM LEVEL 9.2 MG/DL (8.5-10.1); CARBON DIOXIDE LEVEL 32 MEQ/L (21-32); CHLORIDE LEVEL 105 MEQ/L (98-107); CHOLESTEROL LEVEL 243 MG/DL (<200); CREATININE FOR GFR 0.82 MG/DL (0.55-1.30); GLOMERULAR FILTRATION RATE > 60.0 (>51); GLUCOSE, FASTING 82 MG/DL (70-100); HDL CHOLESTEROL 61 MG/DL (>40); POTASSIUM SERUM 4.4 MEQ/L (3.5-5.1); SODIUM LEVEL 141 MEQ/L (136-145); TRIGLYCERIDES LEVEL 162 MG/DL (<150)
[2019-08-19 13:51] LABS: ALBUMIN 3.5 GM/DL (3.2-5.2); CHOLESTEROL RISK RATIO 3.983 (<5); FREE T4 1.01 NG/DL (0.76-1.46); LDL CHOLESTEROL 150 MG/DL (<100); NON-HDL-C 182 MG/DL; THYROID STIMULATING HORMONE 0.416 uIU/ML (0.358-3.740); TOTAL PROTEIN 7.2 GM/DL (6.4-8.2)
[2019-08-19 13:53] LABS: TOTAL 25(OH) VITAMIN D 41.1 NG/ML (30.0-100.0); VITAMIN B12 LEVEL 528 PG/ML (247-911)
== END ==
LOC: M LABDRAW1 13:09
PROVIDERS: ATTEND Family Medicine
DX: Z13.220 Encounter for screening for lipoid disorders (principal); Z13.29 Encounter for screening for other suspected endocrine disorder; Z13.0 Encounter for screening for diseases of the blood and blood-forming organs and certain disorders involving the immune mechanism; E03.9 Hypothyroidism, unspecified; E55.9 Vitamin D deficiency, unspecified; R53.83 Other fatigue

== ENCOUNTER → 2020-09-17 | Outpatient (REF) | payer BC, OTHER | LOC: M SFHCWAGY 16:55 | PROVIDERS: ATTEND Advanced Practice Midwife | DX: Z12.4 Encounter for screening for malignant neoplasm of cervix (principal) ==

== ENCOUNTER → 2021-01-14 | Outpatient (CLI) | payer BC ==
--- NOTE | 2021-01-14 14:44 | REPMRS ---
Patient History The patient states she had a clinical breast exam in October 2020. No known family history of cancer. Patient states no breast complaints. Patient has signed the MRS history sheet. Digital Woman Screen Mammo: January 14, 2021 - Exam #: [id number] Bilateral CC and MLO view(s) were taken. Technologist: Thea Gurrola, Technologist Prior study comparison: August 23, 2018, digital mammo screening bilat, performed at [facility]. October 12, 2016, bilateral digital mammo screening bilat, performed at [facility]. July 19, 2015, bilateral digital woman screen mammo, performed at [facility]. FINDINGS: The breast tissue is almost entirely fat. The Volpara volumetric breast density category is: A. There has been no change in the appearance of the mammogram from the prior studies. There is no interval development of dominant mass, architectural distortion, or grouped microcalcification typical of malignancy. 3-D tomosynthesis shows no additional findings. Assessment: BI-RADS/ACR category 1 mammogram. Negative Mammogram. Recommendation Routine screening mammogram of both breasts in 1 year (for women over age 40). This patient's [facility] Lifetime Breast Cancer RIsk is estimated at 8.7 %. This mammogram was interpreted with the aid of an FDA-approved computer-aided dectection system. Electronically Signed By: Trace Rooney MD 01/14/21 [id number]
== END ==
LOC: M WHC 13:21
PROVIDERS: ATTEND Family Medicine
DX: Z12.31 Encounter for screening mammogram for malignant neoplasm of breast (principal)

== ENCOUNTER → 2021-06-21 | Outpatient (CLI) | payer BC ==
[2021-06-21 11:43] LABS: BASO % 0.6 % (0.0-1.0); EOS % 0.6 % (0.0-3.0); HEMATOCRIT 46.6 % (36.0-47.0); HEMOGLOBIN 14.8 g/dl (12.0-15.5); LYMPH # 1.7 10^3/uL (1.5-5.0); LYMPH % 27.7 % (24.0-44.0); MEAN CORPUSCULAR HGB CONC 31.8 g/dl (32.0-36.5); MEAN CORPUSCULAR VOLUME 94.3 fl (80.0-96.0); MONO # 0.4 10^3/uL (0.0-0.8); MONO % 6.7 % (2.0-8.0); NEUTROPHILS % 64.2 % (36.0-66.0); PLATELET COUNT, AUTOMATED 234 10^3/uL (150-450); RED BLOOD COUNT 4.94 10^6/uL (4.00-5.40); WHITE BLOOD COUNT 6.2 10^3/uL (4.0-10.0)
[2021-06-21 12:30] LABS: ALT/SGPT 30 U/L (12-78); BILIRUBIN,TOTAL 0.5 MG/DL (0.2-1.0); BLOOD UREA NITROGEN 11 MG/DL (7-18); CALCIUM LEVEL 9.2 MG/DL (8.5-10.1); CARBON DIOXIDE LEVEL 31 MEQ/L (21-32); CHLORIDE LEVEL 103 MEQ/L (98-107); CHOLESTEROL LEVEL 293 MG/DL (<200); CHOLESTEROL RISK RATIO 3.855 (<5); CREATININE FOR GFR 0.81 MG/DL (0.55-1.30); FREE T4 1.18 NG/DL (0.76-1.46); GLOMERULAR FILTRATION RATE > 60.0 (>51); GLUCOSE, FASTING 86 MG/DL (70-100); HDL CHOLESTEROL 76 MG/DL (>40); LDL CHOLESTEROL 192 MG/DL (<100); NON-HDL-C 217 MG/DL; SODIUM LEVEL 137 MEQ/L (136-145); THYROID STIMULATING HORMONE 0.431 uIU/ML (0.358-3.740); TOTAL PROTEIN 8.2 GM/DL (6.4-8.2); TRIGLYCERIDES LEVEL 126 MG/DL (<150)
== END ==
LOC: M LAB 09:37
PROVIDERS: ATTEND Family Medicine
DX: E03.9 Hypothyroidism, unspecified (principal)

== ENCOUNTER → 2022-06-06 | Outpatient (CLI) | payer BC | LOC: M WHC 08:00 | PROVIDERS: ATTEND Family Medicine | DX: N63.11 Unspecified lump in the right breast, upper outer quadrant (principal); N63.13 Unspecified lump in the right breast, lower outer quadrant ==

== ENCOUNTER → 2022-12-04 | Outpatient (CLI) | payer BC ==
[2022-12-04 10:47] LABS: BASO # 0.1 10^3/uL (0.0-0.2); BASO % 0.8 % (0.0-1.0); EOS # 0.1 10^3/uL (0.0-0.5); EOS % 1.3 % (0.0-3.0); HEMOGLOBIN 13.9 g/dl (12.0-15.5); LYMPH # 2.2 10^3/uL (1.5-5.0); LYMPH % 34.7 % (24.0-44.0); MEAN CORPUSCULAR HEMOGLOBIN 30.9 pg (27.0-33.0); MEAN CORPUSCULAR HGB CONC 31.6 g/dl (32.0-36.5); MEAN CORPUSCULAR VOLUME 97.8 fl (80.0-96.0); MONO # 0.5 10^3/uL (0.0-0.8); MONO % 8.5 % (2.0-8.0); NEUTROPHILS # 3.5 10^3/uL (1.5-8.5); NEUTROPHILS % 54.4 % (36.0-66.0); PLATELET COUNT, AUTOMATED 225 10^3/uL (150-450); WHITE BLOOD COUNT 6.4 10^3/uL (4.0-10.0)
[2022-12-04 11:11] LABS: ALBUMIN 3.8 G/DL (3.2-5.2); ALKALINE PHOSPHATASE 61 U/L (46-116); ALT/SGPT 42 U/L (7.0-40); AST/SGOT 38 U/L (<34); BILIRUBIN,TOTAL 0.4 MG/DL (0.3-1.2); BLOOD UREA NITROGEN 15 MG/DL (9-23); CALCIUM LEVEL 8.9 MG/DL (8.3-10.6); CARBON DIOXIDE LEVEL 28 MMOL/L (20-31); CHLORIDE LEVEL 106 MMOL/L (98-107); CHOLESTEROL LEVEL 265 MG/DL (<200); CREATININE FOR GFR 0.84 MG/DL (0.55-1.30); GLOMERULAR FILTRATION RATE > 60.0 (>45); GLUCOSE, FASTING 84 MG/DL (74-106); HDL CHOLESTEROL 77.9 MG/DL (>40); LDL CHOLESTEROL 160.1 MG/DL (<100); MAGNESIUM LEVEL 2.3 MG/DL (1.8-2.4); NON-HDL-C 187.1 MG/DL; POTASSIUM SERUM 4.6 MMOL/L (3.5-5.1); SODIUM LEVEL 141 MMOL/L (136-145); TOTAL PROTEIN 7.5 G/DL (5.7-8.2); TRIGLYCERIDES LEVEL 135 MG/DL (<150)
[2022-12-04 12:21] LABS: FREE T4 1.26 NG/DL (0.89-1.76); THYROID STIMULATING HORMONE 0.608 uIU/ML (0.55-4.78)
== END ==
LOC: M PLALAB 08:48
PROVIDERS: ATTEND Internal Medicine Cardiovascular Disease
DX: I10 Essential (primary) hypertension (principal)

== ENCOUNTER → 2024-07-23 | Outpatient (CLI) | payer OTHER | LOC: M WHC 08:03 | PROVIDERS: ATTEND Family Medicine | DX: Z12.31 Encounter for screening mammogram for malignant neoplasm of breast (principal) ==

== ENCOUNTER → 2024-07-23 | Outpatient (CLI) | payer OTHER ==
[2024-07-23 10:39] LABS: FOLATE 17.2 NG/ML (>5.4)
== END ==
LOC: M PLALAB 08:58
PROVIDERS: ATTEND Psychiatry & Neurology Neurology
DX: R25.1 Tremor, unspecified (principal)

== ENCOUNTER → 2024-07-23 | Outpatient (CLI) | payer OTHER ==
[2024-07-23 10:04] LABS: BASO # 0.1 10^3/uL (0.0-0.2); BASO % 1.1 % (0.0-1.0); EOS # 0.1 10^3/uL (0.0-0.5); EOS % 1.5 % (0.0-3.0); HEMATOCRIT 42.8 % (36.0-47.0); HEMOGLOBIN 13.3 g/dl (12.0-15.5); LYMPH # 1.6 10^3/uL (1.5-5.0); LYMPH % 35.1 % (24.0-44.0); MEAN CORPUSCULAR HEMOGLOBIN 30.1 pg (27.0-33.0); MEAN CORPUSCULAR HGB CONC 31.1 g/dl (32.0-36.5); MEAN CORPUSCULAR VOLUME 96.8 fl (80.0-96.0); MONO # 0.5 10^3/uL (0.0-0.8); MONO % 10.1 % (2.0-8.0); NEUTROPHILS # 2.4 10^3/uL (1.5-8.5); PLATELET COUNT, AUTOMATED 160 10^3/uL (150-450); RED BLOOD COUNT 4.42 10^6/uL (4.00-5.40); WHITE BLOOD COUNT 4.6 10^3/uL (4.0-10.0)
[2024-07-23 10:29] LABS: ALBUMIN 3.4 G/DL (3.2-5.2); ALKALINE PHOSPHATASE 81 U/L (35-104); ALT/SGPT 30 U/L (7.0-40); AST/SGOT 27 U/L (<34); BILIRUBIN,TOTAL 0.4 MG/DL (0.3-1.2); BLOOD UREA NITROGEN 20 MG/DL (9-23); CALCIUM LEVEL 9.4 MG/DL (8.3-10.6); CARBON DIOXIDE LEVEL 27 MMOL/L (20-31); CHLORIDE LEVEL 107 MMOL/L (98-107); CHOLESTEROL LEVEL 246 MG/DL (<200); CHOLESTEROL RISK RATIO 4.33 (<5); CREATININE FOR GFR 0.85 MG/DL (0.55-1.30); GLOMERULAR FILTRATION RATE > 60.0 (>45); GLUCOSE, FASTING 90 MG/DL (74-106); HDL CHOLESTEROL 56.8 MG/DL (>40); LDL CHOLESTEROL 143.6 MG/DL (<100); NON-HDL-C 189.2 MG/DL; POTASSIUM SERUM 4.8 MMOL/L (3.5-5.1); SODIUM LEVEL 139 MMOL/L (136-145); TOTAL PROTEIN 6.8 G/DL (5.7-8.2); TRIGLYCERIDES LEVEL 228 MG/DL (<150)
[2024-07-23 10:30] LABS: FREE T4 1.43 NG/DL (0.89-1.76); THYROID STIMULATING HORMONE 0.253 uIU/ML (0.55-4.78)
[2024-07-23 10:31] LABS: TOTAL 25(OH) VITAMIN D 34.4 NG/ML (20.0-100.0)
== END ==
LOC: M PLALAB 08:57
PROVIDERS: ATTEND Family Medicine
DX: E03.9 Hypothyroidism, unspecified (principal); I10 Essential (primary) hypertension

== ENCOUNTER → 2024-09-17 | Outpatient (CLI) | payer OTHER ==
[2024-09-17 08:54] LABS: ALBUMIN 3.8 G/DL (3.2-5.2); ALKALINE PHOSPHATASE 74 U/L (35-104); ALT/SGPT 28 U/L (7.0-40); AST/SGOT 26 U/L (<34); BILIRUBIN,TOTAL 0.4 MG/DL (0.3-1.2); BLOOD UREA NITROGEN 15 MG/DL (9-23); CALCIUM LEVEL 9.4 MG/DL (8.3-10.6); CARBON DIOXIDE LEVEL 26 MMOL/L (20-31); CHLORIDE LEVEL 104 MMOL/L (98-107); CHOLESTEROL LEVEL 142 MG/DL (<200); CHOLESTEROL RISK RATIO 2.21 (<5); CREATININE FOR GFR 0.76 MG/DL (0.55-1.30); GLOMERULAR FILTRATION RATE > 60.0 (>45); GLUCOSE, FASTING 95 MG/DL (74-106); HDL CHOLESTEROL 64.1 MG/DL (>40); LDL CHOLESTEROL 57.7 MG/DL (<100); NON-HDL-C 77.9 MG/DL; POTASSIUM SERUM 4.2 MMOL/L (3.5-5.1); SODIUM LEVEL 138 MMOL/L (136-145); TOTAL PROTEIN 7.1 G/DL (5.7-8.2); TRIGLYCERIDES LEVEL 101 MG/DL (<150)
[2024-09-17 08:55] LABS: FREE T4 1.78 NG/DL (0.89-1.76); THYROID STIMULATING HORMONE 0.045 uIU/ML (0.55-4.78)
== END ==
LOC: M LAB 08:00
PROVIDERS: ATTEND Family Medicine
DX: E03.9 Hypothyroidism, unspecified (principal); E78.00 Pure hypercholesterolemia, unspecified